=== PATIENT | female | born 1990 | race Asian ===

== ENCOUNTER → 2024-08-18 16:36 | Outpatient (REF) | payer BC, SELFPAY | LOC: UCDH 16:36 | PROVIDERS: ATTENDING PHYSICIAN Emergency Medicine; FAMILY PHYSICIAN Nurse Practitioner Family | DX: Z20.1 Contact with and (suspected) exposure to tuberculosis (principal) | CPT/HCPCS: 71046 ==

== ENCOUNTER → 2025-03-03 14:10 | Outpatient (REF) | payer BC, SELFPAY | LOC: WDC 14:10 | PROVIDERS: ATTENDING PHYSICIAN Obstetrics & Gynecology; FAMILY PHYSICIAN Nurse Practitioner Family | DX: Z12.31 Encounter for screening mammogram for malignant neoplasm of breast (principal) | CPT/HCPCS: 77063; 77067 ==

== ENCOUNTER → 2025-03-16 09:28 | Outpatient (REF) | payer BC, SELFPAY | LOC: WDC 09:28 | PROVIDERS: ATTENDING PHYSICIAN Obstetrics & Gynecology; FAMILY PHYSICIAN Nurse Practitioner Family | DX: R92.8 Other abnormal and inconclusive findings on diagnostic imaging of breast (principal) | CPT/HCPCS: 76642 ==

== ENCOUNTER → 2025-03-24 15:37 | Outpatient (REF) | payer BC, SELFPAY | LOC: RAD 15:37 | PROVIDERS: ATTENDING PHYSICIAN Obstetrics & Gynecology; FAMILY PHYSICIAN Nurse Practitioner Family | DX: N93.9 Abnormal uterine and vaginal bleeding, unspecified (principal) | CPT/HCPCS: 76830; 76856 ==